=== PATIENT | female | born 1945 | race Caucasian/White ===

== ENCOUNTER 2018-03-12 12:28 | Inpatient (IN) | payer MEDICARE, MEDICAID ==
[2018-03-12 12:29] VITALS: BMI 29.0
[2018-03-12] MEDS ORDERED: Sodium Chloride 0.9% 500 ML IV ONE ×2 (12:59→16:39)
--- NOTE | 2018-03-12 13:20 | C.PDOC ---
History Of Present Illness 72 year old female presents to the emergency department with complaints of diffuse abdominal pain and rectal pain associated with watery diarrhea for one week. Patient states that today she noticed blood streaks in her diarrhea. Bianca ent reports a history of ulcerative colitis, and admits to nausea but denies vomiting, dysuria, hematuria and fever. Time Seen by Provider: 03/12/18 12:40 Chief Complaint (Nursing): GI Problem History Per: Patient History/Exam Limitations: no limitations Onset/Duration Of Symptoms: Other (one week) Current Symptoms Are (Timing): Still Present Location Of Pain/Discomfort: Diffuse Quality Of Discomfort: "Pain" Associated Symptoms: Nausea, Diarrhea. denies: Fever, Vomiting, Urinary Symptoms Past Medical History Reviewed: Historical Data, Nursing Documentation, Vital Signs Vital Signs: Last Vital Signs Temp 97.6 F 03/12/18 12:31 Pulse 105 H 03/12/18 12:31 Resp 19 03/12/18 12:31 BP 124/71 03/12/18 12:31 Pulse Ox 100 03/12/18 12:31 - Medical History PMH: Arthritis, Asthma, Diabetes Surgical History: No Surg Hx - [facility] SUTURE OF LIP LACERATION (06/18/13) TETANUS TOXOID ADMINIST (06/18/13) Family History: States: No Known Family Hx - Social History Hx Tobacco Use: No Hx Alcohol Use: No Hx Substance Use: No - Immunization History Hx Tetanus Toxoid Vaccination: No Hx Influenza Vaccination: No Hx Pneumococcal Vaccination: No Review Of Systems Except As Marked, All Systems Reviewed And Found Negative. Constitutional: Negative for: Fever, Chills Gastrointestinal: Positive for: Nausea, Abdominal Pain, Diarrhea. Negative for: Vomiting Genitourinary: Negative for: Dysuria, Hematuria Physical Exam - Physical Exam Appears: Non-toxic, In Acute Distress (mildly uncomfortable) Skin: Warm, Dry Head: Atraumatic, Normacephalic Eye(s): bilateral: Normal Inspection, PERRL, EOMI Oral Mucosa: Dry Neck: Normal, Supple Chest: Symmetrical Cardiovascular: Rhythm Regular, No Murmur, Other (tachycardic) Respiratory: Normal Breath Sounds, No Rales, No Rhonchi, No Wheezing Gastrointestinal/Abdominal: Soft, Tenderness (mild, diffuse tenderness), No G uarding, No Rebound Rectal: Other (? fistula at 9 o'clock position, some purulent discharge noticed from fistula. No bleeding or gross blood noticed.) Extremity: Normal ROM Neurological/Psych: Oriented x3, Normal Speech, Normal Cognition ED Course And Treatment - Laboratory Results Result Diagrams: 03/12/18 14:02 03/12/18 14:02 O2 Sat by Pulse Oximetry: 100 (RA) Pulse Ox Interpretation: Normal Progress Note: Plan: CMP. Lipase. Bloodwork. NaCl IV Fluids. Urinalysis Disposition - Disposition Condition: GOOD Forms: [facility] (Persian) - Scribe Statement The provider has reviewed the documentation as recorded by the Scribe (Maximiliano Pierre) Provider Attestation: All medical record entries made by the Scribe were at my direction and personally dictated by me. I have reviewed the chart and agree that the record accurately reflects my personal performance of the history, physical exam, medical decision making, and the department course for this patient. I have also personally directed, reviewed, and agree with the discharge instructions and disposition.
[2018-03-12 14:15] LABS: BASO % 0.2 % (0.0-2.0); EOS % 0.4 % (0.0-4.0); HEMOGLOBIN 11.4 g/dL (11.0-16.0); LYMPH # 1.1 K/uL (1.0-4.3); LYMPH % 15.7 % (20.0-40.0); MEAN CELL VOLUME 92.2 fL (81.0-99.0); MEAN CORPUSCULAR HEMOGLOBIN 30.7 pg (27.0-31.0); MEAN CORPUSCULAR HGB CONC 33.3 g/dL (33.0-37.0); MEAN PLATELET VOLUME 7.7 fL (7.2-11.7); MONO # 0.8 K/uL (0.0-0.8); MONO % 11.5 % (0.0-10.0); NEUT % 72.2 % (50.0-75.0); NRBC % 0.1 % (0.0-2.0); RBC 3.71 Mil/uL (3.80-5.20); RED CELL DISTRIBUTION WIDTH 13.8 % (11.5-14.5); WHITE BLOOD COUNT 6.9 K/uL (4.8-10.8)
[2018-03-12 14:23] LABS: ALB/GLOB RATIO 0.8 (1.0-2.1); ALBUMIN 2.8 g/dL (3.5-5.0); BLOOD UREA NITROGEN 13 mg/dL (7-17); CALCIUM 8.1 mg/dl (8.6-10.4); GFR NON-AFRICAN AMERICAN > 60; LIPASE 26 U/L (23-300)
[2018-03-12 14:33] LABS: ALT/SGPT 19 U/L (9-52); AST/SGOT 22 U/L (14-36)
[2018-03-12] MEDS ORDERED: Iohexol 240 (50 ml) PO STA (14:34)
[2018-03-12] MEDS ORDERED: Iohexol 240 (50 ml) ONE (14:42)
[2018-03-12 14:49] LABS: INR 1.4; PROTHROMBIN TIME 15.5 SECONDS (9.7-12.2)
[2018-03-12] MEDS ORDERED: MethylPREDNISolone 40 mg Vial IVP STA (16:28)
--- NOTE | 2018-03-12 16:28 | CT ---
Date of service: 03/12/2018 PROCEDURE: CT Abdomen and Pelvis without intravenous contrast HISTORY: abdominal and rectal pain, h/o UC COMPARISON: None. TECHNIQUE: Axial and reformatted coronal and sagittal CT images of the abdomen and pelvis were obtained without IV contrast administration. Oral contrast was given. Contrast dose: 0 IV contrast. Radiation dose: Total exam DLP = 357.15 mGy-cm. This CT exam was performed using one or more of the following dose reduction techniques: Automated exposure control, adjustment of the mA and/or kV according to patient size, and/or use of iterative reconstruction technique. FINDINGS: LOWER THORAX: Unremarkable. LIVER: The liver is mildly enlarged demonstrate diffuse moderate low attenuation suggestive of moderate fibrofatty infiltration. GALLBLADDER AND BILE DUCTS: Status post cholecystectomy. PANCREAS: Unremarkable. No gross lesion or ductal dilatation. SPLEEN: Unremarkable. ADRENALS: Unremarkable. No mass. KIDNEYS AND URETERS: There is 2 millimeter calcification noted in the midpole of the left kidney may represent vascular calcification. The possibility of obstructing calculus is less likely.. No hydronephrosis. No solid mass. VASCULATURE: Unremarkable. No aortic aneurysm. Scattered foci of aortic atherosclerotic calcification or mural plaque present. BOWEL: There is a diffuse large bowel wall thickening more prominent at the mid and distal transverse colon consistent with colitis. No evidence of high-grade small bowel obstruction. APPENDIX: No CT evidence of acute appendicitis. PERITONEUM: Unremarkable. No free fluid. No free air. LYMPH NODES: Mildly enlarged mesenteric lymph nodes noted in the mid and lower abdomen more on the right.. No evidence of significant retroperitoneal lymphadenopathy otherwise. BLADDER: Unremarkable. REPRODUCTIVE: The uterus and adnexa are not visualized. BONES: No acute fracture. OTHER FINDINGS: None. IMPRESSION: Diffuse large bowel wall thickening more prominent at the mid and distal transverse colon and hepatic flexure consistent with acute colitis. Mildly enlarged mesenteric lymph nodes. 2 millimeter calcification at the midpole of the left kidney likely vascular.
[2018-03-12] MEDS ORDERED: metroNIDAZOLE IV 500 mg/100 ml 500 MG/100 ML BAG IV STA (16:32)
[2018-03-12] MEDS ORDERED: MethylPREDNISolone 40 mg Vial ONE (16:43)
[2018-03-12] MEDS ORDERED: metroNIDAZOLE IV 500 mg/100 ml 500 MG/100 ML BAG ONE (16:44)
[2018-03-12] MEDS ORDERED: Dextrose 50% SYRINGE Inj (50 ml) IV PRN (18:45)
[2018-03-12] MEDS ORDERED: Glucagon Recombinant 1 mg Inj IM PRN (18:45)
[2018-03-12] MEDS: (Novolog) Insulin Aspart, Recombinant 100 u/ml 10 ml vial SC SCH (21:58)
[2018-03-12] MEDS: Hydrocortisone 2.5% Rectal Cream(30 gm) PR SCH (21:59)
[2018-03-12] MEDS ORDERED: metroNIDAZOLE IV 500 mg/100 ml 500 MG/100 ML BAG IVPB SCH (22:00)
[2018-03-12] MEDS ORDERED: (Novolin R) Insulin Human Regular 100 units/ml vial SC SCH (22:00)
[2018-03-12 22:37] LABS: SQUAMOUS EPITHIAL 17 /hpf (0-5); URINE BACTERIA FEW (<OCC); URINE BILIRUBIN NEGATIVE (NEGATIVE); URINE BLOOD 1+ (NEGATIVE); URINE CLARITY Hazy (Clear); URINE GLUCOSE (UA) NORMAL (Normal); URINE LEUKOCYTE ESTERASE 2+ Leu/uL (Negative); URINE PROTEIN 1+ mg/dL (NEGATIVE)
[2018-03-12 22:39] LABS: URINE COLOR YELLOW (YELLOW)
[2018-03-13] MEDS: metroNIDAZOLE IV 500 mg/100 ml 500 MG/100 ML BAG IVPB SCH ×3 (01:00→17:25)
[2018-03-13] MEDS: (Novolog) Insulin Aspart, Recombinant 100 u/ml 10 ml vial SC SCH ×4 (08:30→21:14)
[2018-03-13] MEDS ORDERED: Hydrocortisone 2.5% Rectal Cream(30 gm) PR SCH (10:00)
[2018-03-13] MEDS: Enoxaparin 40 mg Syringe SC SCH ×2 (10:11→10:22)
[2018-03-13] MEDS: Pantoprazole 20 mg EC Tab PO SCH (10:11)
[2018-03-13] MEDS: GlipiZIDE 10 mg SR Tab PO SCH (10:11)
[2018-03-13] MEDS: Hydrocortisone 2.5% Rectal Cream(30 gm) PR SCH ×2 (11:00→17:25)
--- NOTE | 2018-03-13 21:42 | HP ---
HISTORY OF PRESENT ILLNESS: The patient is a 72-year-old female who presents because of diffuse abdominal and rectal pain as well as watery diarrhea for the past one week. The patient has a history of ulcerative colitis. The patient denies any fever or chills, denies any nausea or vomiting. The patient is unaware of any prior cardiac history. SOCIAL HISTORY: Nonsmoker and nondrinker. According to her, she lives by herself with her dog and frequent visits from homemaker, but recently her son stays with her overnight. MEDICATIONS: Anusol cream twice a day, sulfasalazine 500 mg orally daily, Crestor 5 mg once a day, Flagyl 500 mg intravenously every 8 hours, folic acid 1 mg daily, Glucotrol XL 10 mg daily, Protonix 20 mg daily. REVIEW OF SYSTEMS: No fever or chills. No nausea or vomiting. No retrosternal chest pain. PHYSICAL EXAMINATION GENERAL: The patient is an elderly female who does not appear to be in acute distress. VITAL SIGNS: Blood pressure 115/54, heart rate 90, temperature 98.7, respirations 20. HEENT: Normocephalic. CHEST: Clear. HEART: S1 and S2 are regular. ABDOMEN: Soft. EXTREMITIES: No edema. LABORATORY DATA: Today's hemoglobin and hematocrit are 11.4 and 34.2, white count and platelet count are 6.9 and 294,000. SMA-7: Sodium 135, potassium 3.7, chloride 93, CO2 of 30, glucose 108, BUN 13, creatinine 0.5. INR is 1.4, PTT 34. Abdominal and pelvic CT scan: Diffuse large bowel wall thickening, more prominent at the mid and distal transverse colon and hepatic flexure consistent with acute colitis. Mildly enlarged mesenteric lymph nodes. ASSESSMENT: 1. Acute colitis, most likely exacerbation of ulcerative colitis. 2. Uncontrolled diabetes mellitus. 3. Slightly altered mental status with some paranoid ideations. PLAN: Continue current Anusol cream. Continue sulfasalazine 500 mg orally daily. Continue Crestor 5 mg once a day, IV Flagyl 500 mg intravenously every 8 hours, glipizide 10 mg daily, Protonix 20 mg orally daily. GI consult from requested and I would request endocrine consult from Dr. Sharp. In the meantime, I will obtain a basic 12-lead EKG. Heri Rutherford MD [facility] # [id number]
[2018-03-14] MEDS: metroNIDAZOLE IV 500 mg/100 ml 500 MG/100 ML BAG IVPB SCH ×3 (00:42→17:33)
[2018-03-14] MEDS ORDERED: Phytonadione 10 mg/ml Inj (Adult) SC STA (07:52)
[2018-03-14 07:53] LABS: EOS % 0.1 % (0.0-4.0); LYMPH # 2.1 K/uL (1.0-4.3); LYMPH % 22.3 % (20.0-40.0); MEAN CELL VOLUME 90.5 fL (81.0-99.0); MEAN CORPUSCULAR HEMOGLOBIN 31.4 pg (27.0-31.0); MEAN CORPUSCULAR HGB CONC 34.7 g/dL (33.0-37.0); MEAN PLATELET VOLUME 7.5 fL (7.2-11.7); MONO # 1.1 K/uL (0.0-0.8); MONO % 11.2 % (0.0-10.0); NEUT # 6.4 K/uL (1.8-7.0); NEUT % 66.4 % (50.0-75.0); NRBC % 0.1 % (0.0-2.0); RBC 3.51 Mil/uL (3.80-5.20); RED CELL DISTRIBUTION WIDTH 13.5 % (11.5-14.5); WHITE BLOOD COUNT 9.6 K/uL (4.8-10.8)
[2018-03-14] MEDS: (Novolog) Insulin Aspart, Recombinant 100 u/ml 10 ml vial SC SCH ×3 (08:21→17:34)
[2018-03-14 08:33] LABS: ALB/GLOB RATIO 0.7 (1.0-2.1); ALBUMIN 2.3 g/dL (3.5-5.0); ALT/SGPT 28 U/L (9-52); AST/SGOT 17 U/L (14-36); BLOOD UREA NITROGEN 6 mg/dL (7-17); CALCIUM 7.7 mg/dl (8.6-10.4); GFR NON-AFRICAN AMERICAN > 60
[2018-03-14] MEDS ORDERED: Potassium Chloride 20 mEq ER Tab PO STA (09:32)
[2018-03-14] MEDS: GlipiZIDE 10 mg SR Tab PO SCH (09:36)
[2018-03-14] MEDS: Pantoprazole 20 mg EC Tab PO SCH (09:36)
[2018-03-14] MEDS: Hydrocortisone 2.5% Rectal Cream(30 gm) PR SCH ×2 (09:36→17:40)
--- NOTE | 2018-03-14 10:10 | PN ---
DATE: 03/14/2018 LOCATION: 358, bed B. SUBJECTIVE: This is a 72-year-old female seen and examined in rounds with the staff today, as well as she was fully examined for GI consultation on 03/13/2018 as requested by the admitting MD with intermittent complaint of abdominal pain with reported rectal bleeding on and off. The entire chart is reviewed including but not limited to most recent lab and radiology study results, current and the previous medication list, current and the previous medical events, and the patient's blood glucose levels, latest, was 193. PHYSICAL EXAMINATION: GENERAL: This is a 72-year-old female, awake, alert, oriented. VITAL SIGNS: Temperature 99.4, pulse 80, respiratory rate 20 to 22, blood pressure 116/66. HEENT: Showed pale dry oral mucoid membrane. Nonicteric sclerae. LUNGS: Few scattered crepitation. Decreased air entry at bases. HEART: Positive S1 and S2. ABDOMEN: Soft with diffuse abdominal tenderness mainly in the right and left lower quadrant area. No mass or organomegaly. No rebound tenderness or guarding. NEUROLOGIC: No reported new neurological deficits, sensory or motor. EXTREMITIES: Without edema, clubbing or cyanosis. IMPRESSION: 1. Abnormal CAT scan of the abdomen and pelvis, indicative of acute colitis. 2. To rule out occult gastrointestinal malignancy. 3. To rule out re-exacerbation of peptic ulcer disease. 4. Known history of poorly controlled diabetes mellitus, osteoarthritis and bronchial asthma. SUGGESTIONS: 1. Agree with your plan. 2. Correct any underlying electrolyte imbalance. 3. Due to the patient's increased PT, vitamin K to be ordered. 4. Continue current management and the patient needs to be scheduled for colonoscopy after adequate preparation. 5. Further recommendation to follow and the possibility of ischemic colitis ____ as per Dr. Lepe. Ilan Lepe MD
--- NOTE | 2018-03-14 20:37 | CP.PCM.CON ---
Past Patient History - Past Medical History & Family History Past Medical History?: Yes - Past Social History Smoking Status: Never Smoked - PULMONARY Hx Asthma: Yes - ENDOCRINE/METABOLIC Hx Diabetes Mellitus Type 2: Yes - MUSCULOSKELETAL/RHEUMATOLOGICAL Hx Arthritis: Yes - GASTROINTESTINAL Hx Colitis: Yes - PSYCHIATRIC Hx Substance Use: No - SURGICAL HISTORY Hx Surgeries: Yes Hx Hysterectomy: Yes Hx Orthopedic Surgery: Yes (BILATERAL KNEE REPLACEMENT) - ANESTHESIA Hx Anesthesia: Yes Hx Anesthesia Reactions: No Meds Allergies/Adverse Reactions: Allergies Allergy/AdvReac Type Severity Reaction Status Date / Time iodine Allergy Verified 03/12/18 14:37 - Medications Medications: Current Medications Bisacodyl (Dulcolax) 10 mg PO ONCE ONE Stop: 03/15/18 17:01 Dextrose (Dextrose 50% Inj) 0 ml IV STAT PRN; Protocol PRN Reason: Hypoglycemia Protocol Dextrose (Glutose 15) 0 gm PO ONCE PRN; Protocol PRN Reason: Hypoglycemia Protocol Folic Acid (Folic Acid) 1 mg PO DAILY [facility] Last Admin: 03/14/18 09:36 Dose: 1 mg Glipizide (Glucotrol Xl) 10 mg PO DAILY [facility] Last Admin: 03/14/18 09:36 Dose: 10 mg Glucagon (Glucagen Diagnostic Kit) 0 mg IM STAT PRN; Protocol PRN Reason: Hypoglycemia Protocol Hydrocortisone (Anusol-Hc) 1 gm W[place] BID [facility] Last Admin: 03/14/18 17:40 Dose: 1 applic Dextrose (Dextrose 5% In Water 1000 Ml) 1,000 mls @ 0 mls/hr IV .Q0M PRN; Protocol PRN Reason: Hypoglycemia Protocol Metronidazole (Flagyl) 500 mg in 100 mls @ 100 mls/hr IVPB Q8H RABIA; Protocol Last Admin: 03/14/18 17:33 Dose: 100 mls/hr Insulin Aspart (Novolog) 0 unit SC ACHS RABIA; Protocol Last Admin: 03/14/18 17:34 Dose: Not Given Metoclopramide HCl (Reglan) 5 mg IVP Q6H [facility] Morphine Sulfate (Morphine) 1 mg IVP Q4 PRN PRN Reason: Pain, severe (8-10) Last Admin: 03/14/18 19:14 Dose: 1 mg Pantoprazole Sodium (Protonix Ec Tab) 20 mg PO DAILY [facility] Last Admin: 03/14/18 09:36 Dose: 20 mg Polyethylene Glycol/Electrolytes (Golytely) 4,000 ml PO ONCE ONE Stop: 03/15/18 10:01 Potassium Chloride (K-Dur 20 Meq Er Tab) 20 meq PO DAILY RABIA Stop: 03/18/18 10:01 Rosuvastatin Calcium (Crestor) 5 mg PO HS RABIA Last Admin: 03/13/18 21:15 Dose: 5 mg Sulfasalazine (Azulfidine) 500 mg PO DAILY RABIA; Protocol Last Admin: 03/14/18 09:36 Dose: 500 mg Results - Vital Signs Recent Vital Signs: Last Vital Signs Temp 97.7 F 03/14/18 15:15 Pulse 91 H 03/14/18 15:15 Resp 20 03/14/18 15:15 BP 130/78 03/14/18 15:15 Pulse Ox 100 03/14/18 15:15 - Labs Result Diagrams: 03/14/18 07:29 03/14/18 07:29 Labs: Laboratory Results - last 24 hr 03/13/18 03/14/18 03/14/18 21:01 07:29 07:29 WBC 9.6 RBC 3.51 L Hgb 11.0 Hct 31.8 L MCV 90.5 MCH 31.4 H MCHC 34.7 RDW 13.5 Plt Count 381 MPV 7.5 Neut % (Auto) 66.4 Lymph % (Auto) 22.3 Crisp % (Auto) 11.2 H Eos % (Auto) 0.1 Baso % (Auto) 0.0 Neut # (Auto) 6.4 Lymph # (Auto) 2.1 Crisp # (Auto) 1.1 H Eos # (Auto) 0.0 Baso # (Auto) 0.0 Sodium 138 Potassium 2.8 L Chloride 100 Carbon Dioxide 29 Anion Gap 11 BUN 6 L Creatinine 0.5 L Est GFR ( Amer) > 60 Est GFR (Non-Af Amer) > 60 POC Glucose (mg/dL) 193 H Random Glucose 59 L Calcium 7.7 L Total Bilirubin 0.5 AST 17 ALT 28 Alkaline Phosphatase 90 Total Protein 5.6 L Albumin 2.3 L Globulin 3.3 Albumin/Globulin Ratio 0.7 L 03/14/18 03/14/18 03/14/18 07:55 08:25 11:28 WBC RBC Hgb Hct MCV MCH MCHC RDW Plt Count MPV Neut % (Auto) Lymph % (Auto) Crisp % (Auto) Eos % (Auto) Baso % (Auto) Neut # (Auto) Lymph # (Auto) Crisp # (Auto) Eos # (Auto) Baso # (Auto) Sodium Potassium Chloride Carbon Dioxide Anion Gap BUN Creatinine Est GFR ( Amer) Est GFR (Non-Af Amer) POC Glucose (mg/dL) 68 75 207 H Random Glucose Calcium Total Bilirubin AST ALT Alkaline Phosphatase Total Protein Albumin Globulin Albumin/Globulin Ratio 03/14/18 16:28 WBC RBC Hgb Hct MCV MCH MCHC RDW Plt Count MPV Neut % (Auto) Lymph % (Auto) Crisp % (Auto) Eos % (Auto) Baso % (Auto) Neut # (Auto) Lymph # (Auto) Crisp # (Auto) Eos # (Auto) Baso # (Auto) Sodium Potassium Chloride Carbon Dioxide Anion Gap BUN Creatinine Est GFR ( Amer) Est GFR (Non-Af Amer) POC Glucose (mg/dL) 89 Random Glucose Calcium Total Bilirubin AST ALT Alkaline Phosphatase Total Protein Albumin Globulin Albumin/Globulin Ratio Assessment & Plan (1) Hypoglycemia associated with diabetes Status: Acute (2) Uncontrolled diabetes mellitus Assessment and Plan: Endocrine consult reason for consult: uncontrolled diabetes Source: patient and chart review & son Parag by bed side Cristel Cox is 72 y/o admitted for abdomina pain forund with colitis on antibiotics & rectal steroids as per pt. has DM 2006 (-) neuropathy , (-) retinopathy , (-) nephropathy (- ) CAD (-) PVD outpatient diabetes management regimen : glipizide 10 mg po bid inpatient diabetes management regimen: glipizide xl 10 mg po qd & novolog medium dose coverage blood glucose log :68-200 , on admission 300 with poor intake NO hypoglycemia Allergy NKDA Past medical history:HTN , hyperlipidemia , asthma Past surgical history: cholecystectomy, colon surgery x 2 ,bilateral knee rep lacement Psychiatry history: denies Social history: denies smoking , ETOH use , illicit drug use Family history: son with diabetes ROS: Constitutional: denies fever, tiredness/weakness. HEENT: denies earache, change in voice .Respiratory: denies cough, sob . CVS :no chest pain, no pa lpitations . Abdomen: (+) abdominal pain, no nausea /vomiting, no change bowel movement. 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 Extremities: no edema, no tremors. Skin: no itching, no rash Physical exam Well-developed AAO x3 , ,NAD , frail VSS HEENT: norm cephalic, atraumatic, no lid lag , no exophthalmos NECK: supple, no palpable lymphadenopathy THYROID: no palpable thyromegaly, not tender CHEST: fair air entry, bilateral, CVS: S1,S2 ABDOMEN: bowel sound present, (+) tendereness , obese, no wide purple striae , no bruises EXTREMITIES: no edema, clubbing or cyanosis, no palpable hand tremors Skin: acanthosis nigricans -lab: noted Assessment: hypoglycemia uncontrolled DM colitits plan : stop glipizide stop Novolog start Novoloin R low dose coverage tid & hs start lantus 7 units sq @ 9pm daily obtain a1c & TSH Thank you for allowing me to participate in the care of the patient, we will follow with you. Ronit Tanner # [phone] office Fridays & Saturdays address: [address] [place] [address] ,phone # [phone] ,FAX [phone] Status: Acute (3) Colitis Status: Acute
--- NOTE | 2018-03-14 21:48 | PN ---
DATE: 03/14/2018 SUBJECTIVE: The patient is confused at times. She is still experiencing diarrhea. No vomiting. PHYSICAL EXAMINATION: VITAL SIGNS: Blood pressure 130/78, heart rate 91, temperature 97.7, respirations 20. HEENT: Normocephalic. CHEST: Clear. HEART: S1, S2 regular. EXTREMITIES: No edema. LABORATORY DATA: Today's SMA-7: Sodium 138, potassium 2.8, chloride 100, CO2 29, glucose 59, BUN 6, creatinine 0.5. Today's hemoglobin and hematocrit are 11 and 31.8, white count and platelet count are within normal limits. ASSESSMENT: 1. Ulcerative colitis with acute exacerbation. 2. Rule out occult gastrointestinal malignancy. 3. Rule out exacerbation of peptic ulcer disease. 4. Uncontrolled diabetes mellitus. PLAN: Continue sulfasalazine 500 mg orally daily, Crestor 5 mg once a day, discontinue Dulcolax, continue IV Flagyl 500 mg every 8 hours, glipizide-XL 10 mg daily, K-Dur 20 mEq p.o. daily, and the patient did receive 40 mEq of oral K-Dur today, besides 40 mEq of intravenous potassium chloride. I will follow BMP in a.m. and the patient is scheduled for colonoscopy next week. Heri Rutherford MD
[2018-03-14] MEDS: (Lantus) Insulin Glargine, Recombinant SC SCH (22:14)
[2018-03-14] MEDS: (Novolin R) Insulin Human Regular 100 units/ml vial SC SCH (22:15)
--- NOTE | 2018-03-15 00:27 | CON ---
DATE: 03/13/[address] Lepe to Dr. Figueroa Richardson. I was called for a GI consultation by the admitting medical team. The patient is seen and fully examined on 03/13/2018 as requested by the admitting medical staff. The entire chart is reviewed, including, but not limited to most recent lab and radiology study results, current and the previous medication list, current and the previous medical events, allergy to medication list as well as all the available current and the previous medical records. Case discussed with the staff at length on 03/13/2018 after my GI consultation. HISTORY OF PRESENT ILLNESS: This is a 72-year-old female who was admitted to the hospital through the emergency room due to diffuse abdominal pain, recurrent episodes of rectal pain with watery diarrhea associated with intermittent period of rectal bleeding. Keeping in mind that the patient has a history of ulcerative colitis and her last colonoscopy, apparently with performances, several years ago according to her statement. No reported hematemesis, chest pain, or palpitation. No persistent nausea and dyspepsia prior to her admission. PAST MEDICAL HISTORY: Including mainly, but not limited to: 1. Diabetes mellitus. 2. Inflammatory bowel disease. 3. Bronchial asthma. 4. Osteoarthritis. FAMILY HISTORY: Unknown. SOCIAL HISTORY: No recent history of cigarette smoking or alcohol intake. CURRENT MEDICATIONS: Post admission medication lists were reviewed. ALLERGIES TO MEDICATIONS: UNCLEAR. LABORATORY DATA: Initial blood workup showed normal CBC with increased blood glucose level to 108 with creatinine of 0.5 with subsequent improvement of her blood glucose level since admission. PHYSICAL EXAMINATION: GENERAL: A 72-year-old female complaining of crampy abdominal pain as well as intermittent period of rectal bleeding. Appears to be awake, alert. VITAL SIGNS: Afebrile with pulse of 98, respiratory rate 20-22, blood pressure 120/74. HEENT: Showed dry oral mucous membrane. Nonicteric sclerae. LUNGS: Few scattered crepitation. Decreased air entry at bases. HEART: Positive S1 and S2. ABDOMEN: Soft. Bowel sounds are present with generalized tenderness. No mass or organomegaly. No rebound tenderness or guarding. RECTAL: Positive for trace of fresh blood. EXTREMITIES: Without significant clubbing, cyanosis, or edema. NEUROLOGIC: No reported new neurological deficits, sensory or motor. IMPRESSION: 1. Re-exacerbation of ulcerative colitis. 2. Rectal bleeding secondary to above, to rule out occult lower gastrointestinal malignancy. 3. Peptic ulcer disease, to rule out gastric versus duodenal ulcer. 4. Past medical history of poorly controlled diabetes mellitus, bronchial asthma, and osteoarthritis. SUGGESTIONS: 1. Agree with your plan. 2. Cancer markers including CEA. 3. Sedimentation rate. 4. Solu-Cortef IV. Proton pump inhibitors IV. 5. Sectional abdominal and pelvic CAT scan. 6. Endoscopic evaluation of the GI tract when the patient is more stable clinically. Further recommendations to follow. Ilan Lepe MD
[2018-03-15] MEDS: metroNIDAZOLE IV 500 mg/100 ml 500 MG/100 ML BAG IVPB SCH ×3 (01:07→17:50)
[2018-03-15 08:02] LABS: BLOOD UREA NITROGEN < 2 mg/dL (7-17); CALCIUM 7.6 mg/dl (8.6-10.4); GFR NON-AFRICAN AMERICAN > 60
[2018-03-15] MEDS: (Novolin R) Insulin Human Regular 100 units/ml vial SC SCH ×4 (08:06→21:57)
[2018-03-15] MEDS: Pantoprazole 20 mg EC Tab PO SCH (09:38)
[2018-03-15] MEDS: Hydrocortisone 2.5% Rectal Cream(30 gm) PR SCH ×2 (09:38→17:49)
[2018-03-15] MEDS: Potassium Chloride 20 mEq ER Tab PO SCH (09:39)
[2018-03-15] MEDS ORDERED: Peg-Electrolyte Oral Soln 4L (Golytely) PO ONE (10:00)
--- NOTE | 2018-03-15 11:19 | PN ---
DATE: 03/15/2018 LOCATION: 358, Bed B. SUBJECTIVE: This 72-year-old female seen and examined early in rounds today with reported periods of mild hypoglycemia by last night, appeared to be awake, alert and oriented this morning with reported trace of rectal bleeding on and off and recent change of bowel movement habit. Denied any actual chest pain, palpitation, significant shortness of breath, chills or fever. Today's lab results showed hemoglobin of 83. PHYSICAL EXAMINATION: GENERAL: A 72-year-old female. VITAL SIGNS: Temperature of 99.5, pulse of 86, respiratory 20-22, blood pressure of 124/64. HEENT: Showed pale dry oral mucous membrane. Nonicteric sclerae. LUNGS: Few scattered crepitation. Decreased air entry at bases. HEART: Positive S1 and S2. ABDOMEN: Soft with mild generalized tenderness. No mass or organomegaly. No rebound tenderness or guarding. EXTREMITIES: Without significant clubbing, cyanosis or edema. NEUROLOGIC: No reported new neurological deficits, sensory or motor. IMPRESSION: 1. Abnormal CAT scan of the abdomen and pelvis. 2. Gastrointestinal blood loss, to rule out possible occult gastrointestinal malignancy. 3. Acute colitis. 4. Re-exacerbation of peptic ulcer disease. 5. Known history of osteoarthritis, bronchial asthma, poorly controlled diabetes mellitus. SUGGESTIONS: 1. Continue current management. 2. The patient for colonoscopy at a.m. 3. Serum lipase, amylase level. 4. Further recommendation to follow post colonoscopy. Ilan Lepe MD
--- NOTE | 2018-03-15 14:25 | PN ---
DATE: 03/15/2018 SUBJECTIVE: The patient is still experiencing diarrhea; however, she is getting GoLYTELY as per the patient for colonoscopy. She denies any chest pain, abdominal pain, nausea, or vomiting. PHYSICAL EXAMINATION: VITAL SIGNS: Blood pressure 117/67, heart rate 88, temperature 98.6, and respirations 20. HEENT: Normocephalic. CHEST: Clear. HEART: S1 and S2 regular. EXTREMITIES: No edema. LABORATORY DATA: SMA-7: Sodium 135, potassium 3.6, chloride 101, CO2 of 27, glucose 121, BUN less than 2, and creatinine 0.5. Hemoglobin A1c is 11.3. ASSESSMENT: 1. Ulcerative colitis with acute exacerbation. 2. Rule out underlying gastrointestinal malignancy. 3. Uncontrolled diabetes mellitus. 4. Improved hypokalemia. 5. . PLAN: Continue sulfasalazine 500 mg orally daily, Crestor 500 mg once a day, Flagyl 500 mg intravenously every 8 hours, folic acid 1 mg daily, K-Dur 20 mEq orally daily, Protonix 20 mg once a day, and Reglan 5 mg intravenously every 6 hours. The patient will undergo colonoscopy tomorrow. Heri Rutherford MD
[2018-03-15] MEDS ORDERED: Bisacodyl 5mg EC Tab PO ONE (17:00)
[2018-03-15] MEDS: (Lantus) Insulin Glargine, Recombinant SC SCH (21:57)
[2018-03-16] MEDS: metroNIDAZOLE IV 500 mg/100 ml 500 MG/100 ML BAG IVPB SCH ×3 (00:31→17:46)
[2018-03-16] MEDS: (Novolin R) Insulin Human Regular 100 units/ml vial SC SCH ×4 (08:18→21:14)
[2018-03-16 08:35] LABS: BLOOD UREA NITROGEN 2 mg/dL (7-17); CALCIUM 7.6 mg/dl (8.6-10.4); GFR NON-AFRICAN AMERICAN > 60
[2018-03-16] MEDS: Pantoprazole 20 mg EC Tab PO SCH ×2 (09:34→13:53)
[2018-03-16] MEDS: Potassium Chloride 20 mEq ER Tab PO SCH ×2 (09:34→13:53)
[2018-03-16] MEDS: Hydrocortisone 2.5% Rectal Cream(30 gm) PR SCH ×2 (10:02→17:44)
[2018-03-16] MEDS ORDERED: Propofol 10 mg/ml Inj (20 ML) ONE (11:57)
[2018-03-16] MEDS ORDERED: Lidocaine Hydrochloride 5 ML INJ ONE (11:57)
[2018-03-16 14:20] VITALS: RESP 20
[2018-03-16 18:04] LABS: INR 1.7; PROTHROMBIN TIME 19.1 SECONDS (9.7-12.2)
--- NOTE | 2018-03-16 19:44 | CARD ---
APPROVED REPORT Date of service: 03/13/2018 EKG Measurement Heart [id number] <Conclusion> Normal sinus rhythm Normal ECG
[2018-03-16] MEDS: (Lantus) Insulin Glargine, Recombinant SC SCH (21:21)
--- NOTE | 2018-03-16 21:51 | CP.PCM.PN ---
Subjective - Date & Time of Evaluation Date of Evaluation: 03/16/18 Time of Evaluation: 08:45 - Subjective Subjective: hypoglycemia Objective - Vital Signs/Intake and Output Vital Signs (last 24 hours): Temp Pulse Resp BP Pulse Ox 98.2 F 87 20 131/67 99 03/16/18 16:00 03/16/18 16:00 03/16/18 16:00 03/16/18 16:00 03/16/18 16:00 Intake and Output: 03/16/18 03/17/18 18:59 06:59 Intake Total 490 Balance 490 - Medications Medications: Current Medications Dextrose (Dextrose 50% Inj) 0 ml IV STAT PRN; Protocol PRN Reason: Hypoglycemia Protocol Dextrose (Glutose 15) 0 gm PO ONCE PRN; Protocol PRN Reason: Hypoglycemia Protocol Folic Acid (Folic Acid) 1 mg PO DAILY [facility] Last Admin: 03/16/18 13:53 Dose: 1 mg Glucagon (Glucagen Diagnostic Kit) 0 mg IM STAT PRN; Protocol PRN Reason: Hypoglycemia Protocol Hydrocortisone (Anusol-Hc) 1 gm [place] BID [facility] Last Admin: 03/16/18 17:44 Dose: 1 applic Metronidazole (Flagyl) 500 mg in 100 mls @ 100 mls/hr IVPB Q8H [facility]; Protocol Last Admin: 03/16/18 17:46 Dose: 100 mls/hr Insulin Glargine (Lantus) 7 unit SC [facility] Last Admin: 03/16/18 21:21 Dose: 7 units Insulin Human Regular (Novolin R) 0 unit SC [facility]; Protocol Last Admin: 03/16/18 21:14 Dose: Not Given Metoclopramide HCl (Reglan) 5 mg IVP Q6H [facility] Last Admin: 03/16/18 17:46 Dose: 5 mg Morphine Sulfate (Morphine) 1 mg IVP Q4 PRN PRN Reason: Pain, severe (8-10) Last Admin: 03/16/18 20:03 Dose: 1 mg Pantoprazole Sodium (Protonix Ec Tab) 20 mg PO DAILY [facility] Last Admin: 03/16/18 13:53 Dose: 20 mg Potassium Chloride (K-Dur 20 Meq Er Tab) 20 meq PO DAILY [facility] Stop: 03/18/18 10:01 Last Admin: 03/16/18 13:53 Dose: 20 meq Rosuvastatin Calcium (Crestor) 5 mg PO [facility] Last Admin: 03/16/18 21:22 Dose: 5 mg Sulfasalazine (Azulfidine) 500 mg PO DAILY [facility]; Protocol Last Admin: 03/16/18 14:37 Dose: 500 mg - Labs Labs: 03/14/18 07:29 03/16/18 08:16 PT 19.1 SECONDS (9.7-12.2) H 03/16/18 17:44 INR 1.7 03/16/18 17:44 APTT 25 SECONDS (21-34) 03/16/18 17:44 Assessment and Plan (1) Hypoglycemia associated with diabetes Assessment & Plan: Endocrine consult f/u reason for consult: uncontrolled diabetes Source: patient and chart review & son Parag by bed side Cristel Cox is 72 y/o admitted for abdomina pain forund with colitis on antibiotics & rectal steroids as per pt. has DM 2005 (-) neuropathy , (-) retinopathy , (-) nephropathy (- ) CAD (-) PVD outpatient diabetes management regimen : glipizide 10 mg po bid inpatient diabetes management regimen: glipizide xl 10 mg po qd & novolog medium dose coverage blood glucose log :190 with poor intake NO hypoglycemia Allergy NKDA Past medical history:HTN , hyperlipidemia , asthma Past surgical history: cholecystectomy, colon surgery x 2 ,bilateral knee replacement Psychiatry history: denies Social history: denies smoking , ETOH use , illicit drug use Family history: son with diabetes ROS: Constitutional: denies fever, tiredness/weakness. HEENT: denies earache, change in voice .Respiratory: denies cough, sob . CVS :no chest pain, no palpitations . Abdomen: (+) abdominal pain, no nausea /vomiting, no change bowel movement. [employer] : denies light-headedness, dizziness. Extremities: no edema, no tremors. Skin: no itching, no rash Physical exam Well-developed AAO x3 , ,NAD , frail VSS HEENT: norm cephalic, atraumatic, no lid lag , no exophthalmos NECK: supple, no palpable lymphadenopathy THYROID: no palpable thyromegaly, not tender CHEST: fair air entry, bilateral, CVS: S1,S2 ABDOMEN: bowel sound present, (+) tendereness , obese, no wide purple striae , no bruises EXTREMITIES: no edema, clubbing or cyanosis, no palpable hand tremors Skin: acanthosis nigricans -lab: a1c 11.3 , TSH 2.02 Assessment: hypoglycemia , resolved uncontrolled DM colitits plan : continue Novoloin R low dose coverage tid & hs continue lantus 7 units sq @ 9pm daily we will follow with you. Ronit Tanner # [phone] office Fridays & Saturdays address: [address] [place] [address] ,phone # [phone] ,FAX [phone] Status: Acute (2) Uncontrolled diabetes mellitus Status: Acute (3) Colitis Status: Acute
[2018-03-17] MEDS: metroNIDAZOLE IV 500 mg/100 ml 500 MG/100 ML BAG IVPB SCH ×3 (01:03→17:50)
--- NOTE | 2018-03-17 02:10 | CP.PCM.PN ---
Subjective - Date & Time of Evaluation Date of Evaluation: 03/16/18 - Subjective Subjective: dictated Objective - Vital Signs/Intake and Output Vital Signs (last 24 hours): Temp Pulse Resp BP Pulse Ox 98.8 F 86 20 108/55 L 98 03/17/18 00:00 03/17/18 00:00 03/17/18 00:00 03/17/18 00:00 03/17/18 00:00 Intake and Output: 03/16/18 03/17/18 18:59 06:59 Intake Total 490 450 Balance 490 450 - Medications Medications: Current Medications Dextrose (Dextrose 50% Inj) 0 ml IV STAT PRN; Protocol PRN Reason: Hypoglycemia Protocol Dextrose (Glutose 15) 0 gm PO ONCE PRN; Protocol PRN Reason: Hypoglycemia Protocol Folic Acid (Folic Acid) 1 mg PO DAILY [facility] Last Admin: 03/16/18 13:53 Dose: 1 mg Glucagon (Glucagen Diagnostic Kit) 0 mg IM STAT PRN; Protocol PRN Reason: Hypoglycemia Protocol Hydrocortisone (Anusol-Hc) 1 gm [place] BID [facility] Last Admin: 03/16/18 17:44 Dose: 1 applic Metronidazole (Flagyl) 500 mg in 100 mls @ 100 mls/hr IVPB Q8H [facility]; Protocol Last Admin: 03/17/18 01:03 Dose: 100 mls/hr Insulin Glargine (Lantus) 7 unit SC [facility] Last Admin: 03/16/18 21:21 Dose: 7 units Insulin Human Regular (Novolin R) 0 unit SC [facility]; Protocol Last Admin: 03/16/18 21:14 Dose: Not Given Metoclopramide HCl (Reglan) 5 mg IVP Q6H [facility] Last Admin: 03/17/18 00:47 Dose: Not Given Morphine Sulfate (Morphine) 1 mg IVP Q4 PRN PRN Reason: Pain, severe (8-10) Last Admin: 03/16/18 20:03 Dose: 1 mg Pantoprazole Sodium (Protonix Ec Tab) 20 mg PO DAILY [facility] Last Admin: 03/16/18 13:53 Dose: 20 mg Potassium Chloride (K-Dur 20 Meq Er Tab) 20 meq PO DAILY [facility] Stop: 03/18/18 10:01 Last Admin: 03/16/18 13:53 Dose: 20 meq Rosuvastatin Calcium (Crestor) 5 mg PO [facility] Last Admin: 03/16/18 21:22 Dose: 5 mg Sulfasalazine (Azulfidine) 500 mg PO DAILY [facility]; Protocol Last Admin: 03/16/18 14:37 Dose: 500 mg - Labs Labs: 03/14/18 07:29 03/16/18 08:16 PT 19.1 SECONDS (9.7-12.2) H 03/16/18 17:44 INR 1.7 03/16/18 17:44 APTT 25 SECONDS (21-34) 03/16/18 17:44
[2018-03-17 06:48] LABS: BASO % 0.5 % (0.0-2.0); EOS % 0.3 % (0.0-4.0); HEMOGLOBIN 10.7 g/dL (11.0-16.0); LYMPH # 1.4 K/uL (1.0-4.3); LYMPH % 28.5 % (20.0-40.0); MEAN CELL VOLUME 90.9 fL (81.0-99.0); MEAN CORPUSCULAR HEMOGLOBIN 29.9 pg (27.0-31.0); MEAN CORPUSCULAR HGB CONC 32.9 g/dL (33.0-37.0); MEAN PLATELET VOLUME 7.1 fL (7.2-11.7); MONO # 0.7 K/uL (0.0-0.8); MONO % 13.7 % (0.0-10.0); NEUT # 2.7 K/uL (1.8-7.0); NRBC % 0.2 % (0.0-2.0); RBC 3.57 Mil/uL (3.80-5.20); RED CELL DISTRIBUTION WIDTH 13.8 % (11.5-14.5); WHITE BLOOD COUNT 4.8 K/uL (4.8-10.8)
--- NOTE | 2018-03-17 06:56 | PN ---
DATE: 03/17/2018 SUBJECTIVE: The patient, Cristel Edward, has still some abdominal discomfort and she has right hip pain. Her sugar went down to 62. The patient is status post colonoscopy which showed colitis. Biopsy is pending. She is afebrile. No chest pain. No nausea or vomiting. The patient is currently on sulfasalazine and Flagyl. Her potassium was supplemented. PHYSICAL EXAMINATION: VITAL SIGNS: Blood pressure is 130/77, pulse 92, respiratory rate 20, and temperature 98.7. LUNGS: Clear. No rales. No rhonchi. CARDIOVASCULAR SYSTEM: S1 and S2. Regular. EXTREMITIES: Right hip normal range of movements. CENTRAL NERVOUS SYSTEM: Awake, alert, and oriented x3. ASSESSMENT AND PLAN: 1. Hypoglycemia. We will monitor the patient more carefully and scale down her coverage. 2. Colitis. Biopsy pending. The patient is a known case of ulcerative colitis with excessive lesions in the recent past. 3. Hypertension. 4. Rheumatoid arthritis. PLAN: Pain medication on a p.r.n. basis., diet, and GI followup. Monitor the patient. Figueroa Richardson MD
[2018-03-17 07:17] LABS: CALCIUM 7.4 mg/dl (8.6-10.4); GFR NON-AFRICAN AMERICAN > 60
[2018-03-17 07:38] LABS: BLOOD UREA NITROGEN < 2 mg/dL (7-17)
[2018-03-17] MEDS: (Novolin R) Insulin Human Regular 100 units/ml vial SC SCH ×4 (08:25→21:28)
[2018-03-17] MEDS: Pantoprazole 20 mg EC Tab PO SCH (09:47)
[2018-03-17] MEDS: Potassium Chloride 20 mEq ER Tab PO SCH (09:47)
[2018-03-17] MEDS: Hydrocortisone 2.5% Rectal Cream(30 gm) PR SCH ×2 (11:00→17:49)
[2018-03-17] MEDS: MethylPREDNISolone 40 mg Vial IVP SCH ×2 (12:00→21:28)
[2018-03-17] MEDS: (Lantus) Insulin Glargine, Recombinant SC SCH (21:29)
--- NOTE | 2018-03-17 21:57 | CP.PCM.PN ---
Subjective - Subjective Subjective: dictated Objective - Vital Signs/Intake and Output Vital Signs (last 24 hours): Temp Pulse Resp BP Pulse Ox 97.9 F 81 20 110/57 L 100 03/17/18 16:33 03/17/18 16:33 03/17/18 16:33 03/17/18 16:33 03/17/18 16:33 Intake and Output: 03/17/18 03/18/18 18:59 06:59 Intake Total 1100 Balance 1100 - Medications Medications: Current Medications Dextrose (Dextrose 50% Inj) 0 ml IV STAT PRN; Protocol PRN Reason: Hypoglycemia Protocol Dextrose (Glutose 15) 0 gm PO ONCE PRN; Protocol PRN Reason: Hypoglycemia Protocol Folic Acid (Folic Acid) 1 mg PO DAILY [facility] Last Admin: 03/17/18 09:47 Dose: 1 mg Glucagon (Glucagen Diagnostic Kit) 0 mg IM STAT PRN; Protocol PRN Reason: Hypoglycemia Protocol Hydrocortisone (Anusol-Hc) 1 gm [place] BID [facility] Last Admin: 03/17/18 17:49 Dose: 1 applic Metronidazole (Flagyl) 500 mg in 100 mls @ 100 mls/hr IVPB Q8H [facility]; Protocol Last Admin: 03/17/18 17:50 Dose: 100 mls/hr Insulin Glargine (Lantus) 7 unit SC HS [facility] Last Admin: 03/17/18 21:29 Dose: 7 units Insulin Human Regular (Novolin R) 0 unit SC [facility]; Protocol Last Admin: 03/17/18 21:28 Dose: Not Given Methylprednisolone (Solu-Medrol) 30 mg IVP Q12 [facility] Stop: 03/19/18 22:01 Last Admin: 03/17/18 21:28 Dose: 30 mg Metoclopramide HCl (Reglan) 5 mg IVP Q6H [facility] Last Admin: 03/17/18 18:02 Dose: 5 mg Morphine Sulfate (Morphine) 1 mg IVP Q4 PRN PRN Reason: Pain, severe (8-10) Last Admin: 03/17/18 18:15 Dose: 1 mg Pantoprazole Sodium (Protonix Ec Tab) 20 mg PO DAILY [facility] Last Admin: 03/17/18 09:47 Dose: 20 mg Potassium Chloride (K-Dur 20 Meq Er Tab) 20 meq PO DAILY [facility] Stop: 03/18/18 10:01 Last Admin: 03/17/18 09:47 Dose: 20 meq Rosuvastatin Calcium (Crestor) 5 mg PO HS [facility] Last Admin: 03/17/18 21:31 Dose: 5 mg Sulfasalazine (Azulfidine) 500 mg PO DAILY [facility]; Protocol Last Admin: 03/17/18 09:47 Dose: 500 mg - Labs Labs: 03/17/18 06:31 03/17/18 06:31 PT 19.1 SECONDS (9.7-12.2) H 03/16/18 17:44 INR 1.7 03/16/18 17:44 APTT 25 SECONDS (21-34) 03/16/18 17:44
--- NOTE | 2018-03-17 22:26 | CP.PCM.PN ---
Subjective - Date & Time of Evaluation Date of Evaluation: 03/17/18 Time of Evaluation: 10:00 - Subjective Subjective: hypoglycemia , uncontrolled dm Objective - Vital Signs/Intake and Output Vital Signs (last 24 hours): Temp Pulse Resp BP Pulse Ox 97.9 F 81 20 110/57 L 100 03/17/18 16:33 03/17/18 16:33 03/17/18 16:33 03/17/18 16:33 03/17/18 16:33 Intake and Output: 03/17/18 03/18/18 18:59 06:59 Intake Total 1100 Balance 1100 - Medications Medications: Current Medications Dextrose (Dextrose 50% Inj) 0 ml IV STAT PRN; Protocol PRN Reason: Hypoglycemia Protocol Dextrose (Glutose 15) 0 gm PO ONCE PRN; Protocol PRN Reason: Hypoglycemia Protocol Folic Acid (Folic Acid) 1 mg PO DAILY [facility] Last Admin: 03/17/18 09:47 Dose: 1 mg Glucagon (Glucagen Diagnostic Kit) 0 mg IM STAT PRN; Protocol PRN Reason: Hypoglycemia Protocol Hydrocortisone (Anusol-Hc) 1 gm [place] BID [facility] Last Admin: 03/17/18 17:49 Dose: 1 applic Metronidazole (Flagyl) 500 mg in 100 mls @ 100 mls/hr IVPB Q8H [facility]; Protocol Last Admin: 03/17/18 17:50 Dose: 100 mls/hr Insulin Glargine (Lantus) 7 unit SC HS [facility] Last Admin: 03/17/18 21:29 Dose: 7 units Insulin Human Regular (Novolin R) 0 unit SC [facility]; Protocol Last Admin: 03/17/18 21:28 Dose: Not Given Insulin Human Regular (Novolin R) 4 unit SC TIDPC [facility] Methylprednisolone (Solu-Medrol) 30 mg IVP Q12 [facility] Stop: 03/19/18 22:01 Last Admin: 03/17/18 21:28 Dose: 30 mg Metoclopramide HCl (Reglan) 5 mg IVP Q6H [facility] Last Admin: 03/17/18 18:02 Dose: 5 mg Morphine Sulfate (Morphine) 1 mg IVP Q4 PRN PRN Reason: Pain, severe (8-10) Last Admin: 03/17/18 18:15 Dose: 1 mg Pantoprazole Sodium (Protonix Ec Tab) 20 mg PO DAILY [facility] Last Admin: 03/17/18 09:47 Dose: 20 mg Potassium Chloride (K-Dur 20 Meq Er Tab) 20 meq PO DAILY [facility] Stop: 03/18/18 10:01 Last Admin: 03/17/18 09:47 Dose: 20 meq Rosuvastatin Calcium (Crestor) 5 mg PO HS [facility] Last Admin: 03/17/18 21:31 Dose: 5 mg Sulfasalazine (Azulfidine) 500 mg PO DAILY [facility]; Protocol Last Admin: 03/17/18 09:47 Dose: 500 mg - Labs Labs: 03/17/18 06:31 03/17/18 06:31 PT 19.1 SECONDS (9.7-12.2) H 03/16/18 17:44 INR 1.7 03/16/18 17:44 APTT 25 SECONDS (21-34) 03/16/18 17:44 Assessment and Plan (1) Hypoglycemia associated with diabetes Assessment & Plan: Endocrine consult f/u reason for consult: uncontrolled diabetes Source: patient and chart review & son Parag by bed side Cristel Cox is 72 y/o admitted for abdomina pain forund with colitis on antibiotics & rectal steroids as per pt. has DM 2005 (-) neuropathy , (-) retinopathy , (-) nephropathy (- ) CAD (-) PVD outpatient diabetes management regimen : glipizide 10 mg po bid inpatient diabetes management regimen: glipizide xl 10 mg po qd & novolog medium dose coverage blood glucose log :80-100 , last 3 glucose 200-300 started of Solumedrol 30 mg q12 today for 6 doses besides ate more than 70% of the meal as per nurse in charge NO hypoglycemia Allergy NKDA Past medical history:HTN , hyperlipidemia , asthma Past surgical history: cholecystectomy, colon surgery x 2 ,bilateral knee replacement Psychiatry history: denies Social history: denies smoking , ETOH use , illicit drug use Family history: son with diabetes ROS: Constitutional: denies fever, tiredness/weakness. HEENT: denies earache, change in voice .Respiratory: denies cough, sob . CVS :no chest pain, no palpitations . Abdomen: (-) abdominal pain, no nausea /vomiting, no change bowel movement. [employer]AD : denies light-headedness, dizziness. Extremities: no edema, no tremors. Skin: no itching, no rash Physical exam Well-developed AAO x3 , ,NAD VSS HEENT: norm cephalic, atraumatic, no lid lag , no exophthalmos NECK: supple, no palpable lymphadenopathy THYROID: no palpable thyromegaly, not tender CHEST: fair air entry, bilateral, CVS: S1,S2 ABDOMEN: bowel sound present, (+) tendereness , obese, no wide purple striae , no bruises EXTREMITIES: no edema, clubbing or cyanosis, no palpable hand tremors Skin: acanthosis nigricans -lab: a1c 11.3 , TSH 2.02 Assessment: hypoglycemia , resolved uncontrolled DM steroids induced hyperglycemia colitits plan : continue Novoloin R low dose coverage tid & hs start Novolin R 4 units tid with meals if eat more than 60% of the meal continue lantus 7 units sq @ 9pm daily we will follow with you. Ronit Tanner # [phone] office Fridays & Saturdays address: [address] [place] [address] ,phone # [phone] ,FAX [phone] Status: Acute Status: Acute (2) Uncontrolled diabetes mellitus Status: Acute (3) Colitis Status: Acute
[2018-03-18] MEDS: metroNIDAZOLE IV 500 mg/100 ml 500 MG/100 ML BAG IVPB SCH ×3 (00:55→17:41)
--- NOTE | 2018-03-18 02:40 | PN ---
DATE: 03/17/2018 SUBJECTIVE: This is a 72-year-old female seen and examined in rounds without significant clinical changes, but crampy abdominal pain with intermittent periods of mild diarrhea. The entire chart is reviewed, including but not limited to the most recent lab and radiology study results, current and the previous medication list, current and the previous medical events. Case discussed with the staff at length. Today's lab showed low hemoglobin of 10.7, hematocrit 34.7 with low indices as well as increased PT with low potassium and low calcium. CEA is 10.1, but increased CA19-9 for which MRCP to be considered. PHYSICAL EXAMINATION: GENERAL: A 72-year-old female, awake, alert. VITAL SIGNS: Temperature of 99, blood pressure 120/58, pulse 82. HEENT: Showed pale, dry oral mucous membranes with nonicteric sclerae. LUNGS: Few scattered crepitations. Breathing sounds are present bilaterally. HEART: Positive S1 and S2. ABDOMEN: Soft, with mild generalized tenderness. No mass or organomegaly. No rebound tenderness or guarding. EXTREMITIES: Without significant clubbing, cyanosis, or edema. NEUROLOGIC: No reported new neurological deficits, sensory or motor. IMPRESSION: 1. Acute colitis. 2. Re-exacerbation of peptic ulcer disease. 3. Known history of poorly controlled diabetes mellitus, osteoarthritis, bronchial asthma. SUGGESTIONS: 1. Continue current management. 2. MRCP. 3. Further recommendations to follow. Ilan Lepe MD
[2018-03-18] MEDS: (Novolin R) Insulin Human Regular 100 units/ml vial SC SCH ×5 (08:39→17:44)
[2018-03-18 08:48] VITALS: O2SAT 97
[2018-03-18] MEDS: Potassium Chloride 20 mEq ER Tab PO SCH (10:18)
[2018-03-18] MEDS: Pantoprazole 20 mg EC Tab PO SCH (10:18)
[2018-03-18] MEDS: MethylPREDNISolone 40 mg Vial IVP SCH (10:18)
[2018-03-18] MEDS: Hydrocortisone 2.5% Rectal Cream(30 gm) PR SCH (10:19)
--- NOTE | 2018-03-18 10:19 | PN ---
DATE: 03/18/2018 SUBJECTIVE: The patient, Cristel Edward, continues to have right hip and right lower back pain. She has been requiring medicines. The patient is also having diarrhea and she has abdominal pain and bloating. She denies any blood in the stools. Her diarrhea has been persisting. She is afebrile. No nausea or vomiting. She is tolerating diet. She has been seen by GI. PHYSICAL EXAMINATION: VITAL SIGNS: Blood pressure is 111/55, pulse 79, respiratory rate 20, temperature 99.2. LUNGS: Clear. CARDIOVASCULAR SYSTEM: S1 and S2 regular. ABDOMEN: Soft. There is left lower quadrant tenderness. ASSESSMENT: 1. Hip pain in a patient with history of rheumatoid arthritis. 2. Ulcerative colitis, rule out underlying Clostridium difficile colitis. 3. Dehydration, hypokalemia. 4. Type 2 diabetes. PLAN: Continue current medication. Start steroids and Flagyl, and follow up closely. Figueroa Richardson MD
[2018-03-18 14:16] LABS: BLOOD UREA NITROGEN 3 mg/dL (7-17); GFR NON-AFRICAN AMERICAN > 60
--- NOTE | 2018-03-18 15:12 | PN ---
DATE: 03/18/2018 LOCATION: 358, bed B. SUBJECTIVE: This is a 72-year-old female seen and examined in rounds with less abdominal pain as well as less bowel movement frequency. No nausea or vomiting. No chest pain or palpitation, chills or fever. The patient tolerated oral intake well. The entire chart is reviewed including but not limited to the most recent lab and radiology study results, current and the previous medication list, current and the previous medical events and today's lab results showed blood glucose level of 259. Rest of the lab results still pending. PHYSICAL EXAMINATION: GENERAL: A 72-year-old female, awake, alert, oriented. VITAL SIGNS: Afebrile with pulse of 80, respiratory rate 20 to 22, blood pressure of 120/68. HEENT: Showed mildly pale, dry oral mucous membrane. Nonicteric sclerae. LUNGS: Few scattered crepitation. Decreased air entry at bases. HEART: Positive S1 and S2. ABDOMEN: Soft with mild generalized tenderness. No mass or organomegaly. No rebound tenderness or guarding. EXTREMITIES: Without significant edema, clubbing or cyanosis. NEUROLOGICAL: No reported new neurological deficits, sensory or motor. It has to be mentioned that official pathology report of colonoscopy results still pending and the possibility of ulcerative colitis was strongly raised. The patient had been on steroids post colonoscopy. IMPRESSION: 1. Inflammatory bowel disease, most likely. 2. Anemia secondary to above. 3. Poorly-controlled diabetes mellitus. 4 Peptic ulcer disease. 5. Known history of bronchial asthma, osteoarthritis. SUGGESTIONS: 1. Agree with your plan. 2. The patient needs followup colonoscopy after one year. 3. Follow up on pathology report. Ilan Lepe MD
--- NOTE | 2018-03-18 16:31 | CP.PCM.PN ---
Subjective - Date & Time of Evaluation Date of Evaluation: 03/18/18 Time of Evaluation: 16:31 Objective - Vital Signs/Intake and Output Vital Signs (last 24 hours): Temp Pulse Resp BP Pulse Ox 98.5 F 81 20 114/65 97 03/18/18 08:47 03/18/18 08:47 03/18/18 08:47 03/18/18 08:47 03/18/18 08:47 Intake and Output: 03/18/18 03/18/18 06:59 18:59 Intake Total 300 800 Balance 300 800 - Medications Medications: Current Medications Dextrose (Dextrose 50% Inj) 0 ml IV STAT PRN; Protocol PRN Reason: Hypoglycemia Protocol Dextrose (Glutose 15) 0 gm PO ONCE PRN; Protocol PRN Reason: Hypoglycemia Protocol Folic Acid (Folic Acid) 1 mg PO DAILY [facility] Last Admin: 03/18/18 10:18 Dose: 1 mg Glucagon (Glucagen Diagnostic Kit) 0 mg IM STAT PRN; Protocol PRN Reason: Hypoglycemia Protocol Hydrocortisone (Anusol-Hc) 1 gm [place] BID [facility] Last Admin: 03/18/18 10:19 Dose: 1 applic Metronidazole (Flagyl) 500 mg in 100 mls @ 100 mls/hr IVPB Q8H [facility]; Protocol Last Admin: 03/18/18 10:18 Dose: 100 mls/hr Insulin Glargine (Lantus) 7 unit SC HS [facility] Last Admin: 03/17/18 21:29 Dose: 7 units Insulin Human Regular (Novolin R) 0 unit SC ACHS [facility]; Protocol Last Admin: 03/18/18 12:00 Dose: 4 units Insulin Human Regular (Novolin R) 4 unit SC TIDPC [facility] Last Admin: 03/18/18 13:04 Dose: Not Given Methylprednisolone (Solu-Medrol) 30 mg IVP Q12 [facility] Stop: 03/19/18 22:01 Last Admin: 03/18/18 10:18 Dose: 30 mg Metoclopramide HCl (Reglan) 5 mg IVP Q6H [facility] Last Admin: 03/18/18 12:00 Dose: 5 mg Morphine Sulfate (Morphine) 1 mg IVP Q4 PRN PRN Reason: Pain, severe (8-10) Last Admin: 03/18/18 13:13 Dose: 1 mg Pantoprazole Sodium (Protonix Ec Tab) 20 mg PO DAILY [facility] Last Admin: 03/18/18 10:18 Dose: 20 mg Rosuvastatin Calcium (Crestor) 5 mg PO HS [facility] Last Admin: 03/17/18 21:31 Dose: 5 mg Sulfasalazine (Azulfidine) 500 mg PO DAILY [facility]; Protocol Last Admin: 03/18/18 10:18 Dose: 500 mg - Labs Labs: 03/17/18 06:31 03/18/18 13:49 PT 19.1 SECONDS (9.7-12.2) H 03/16/18 17:44 INR 1.7 03/16/18 17:44 APTT 25 SECONDS (21-34) 03/16/18 17:44 Assessment and Plan - Assessment and Plan (Free Text) Assessment: 72 year old female admitted with ulcerative colitis exacerbation, s/p colonoscopy, seen and examined. Alert, awake, denies sob or chest pains, tolerating diet, no acute distress. Discussed with DR Richardson, plan to discharge to [facility] for rehab today. Will continue with oral steroids.
[2018-03-18 17:15] VITALS: BP 124/68; PULSE 77; TEMP 98.4
--- NOTE | 2018-03-18 22:28 | CP.PCM.DIS ---
Provider - Provider Date of Admission: 03/12/18 16:32 Attending physician: Figueroa Richardson MD Hospital Course - Lab Results Lab Results: Micro Results 03/16/18 Unknown Stool Stool Culture - Final NO SALMONELLA, SHIGELLA OR CAMPYLOBACTER ISOLATED. 03/12/18 14:20 Blood Blood Culture - Final NO GROWTH AFTER 5 DAYS 03/12/18 14:20 Blood Gram Stain - Final TEST NOT PERFORMED 03/12/18 12:50 Blood Blood Culture - Final NO GROWTH AFTER 5 DAYS 03/12/18 12:50 Blood Gram Stain - Final TEST NOT PERFORMED Most Recent Lab Values WBC 4.8 K/uL (4.8-10.8) 03/17/18 06:31 RBC 3.57 Mil/uL (3.80-5.20) L 03/17/18 06:31 Hgb 10.7 g/dL (11.0-16.0) L 03/17/18 06:31 Hct 32.5 % (34.0-47.0) L 03/17/18 06:31 MCV 90.9 fL (81.0-99.0) 03/17/18 06:31 MCH 29.9 pg (27.0-31.0) 03/17/18 06:31 MCHC 32.9 g/dL (33.0-37.0) L 03/17/18 06:31 RDW 13.8 % (11.5-14.5) 03/17/18 06:31 Plt Count 281 K/uL (130-400) D 03/17/18 06:31 MPV 7.1 fL (7.2-11.7) L 03/17/18 06:31 Neut % (Auto) 57.0 % (50.0-75.0) 03/17/18 06:31 Lymph % (Auto) 28.5 % (20.0-40.0) 03/17/18 06:31 [place]bot % (Auto) 13.7 % (0.0-10.0) H 03/17/18 06:31 Eos % (Auto) 0.3 % (0.0-4.0) 03/17/18 06:31 Baso % (Auto) 0.5 % (0.0-2.0) 03/17/18 06:31 Neut # (Auto) 2.7 K/uL (1.8-7.0) 03/17/18 06:31 Lymph # (Auto) 1.4 K/uL (1.0-4.3) 03/17/18 06:31 Talbot # (Auto) 0.7 K/uL (0.0-0.8) 03/17/18 06:31 Eos # (Auto) 0.0 K/uL (0.0-0.7) 03/17/18 06:31 Baso # (Auto) 0.0 K/uL (0.0-0.2) 03/17/18 06:31 ESR 50 mm/hr (0-20) H 03/16/18 17:44 PT 19.1 SECONDS (9.7-12.2) H 03/16/18 17:44 INR 1.7 03/16/18 17:44 APTT 25 SECONDS (21-34) 03/16/18 17:44 Sodium 134 mmol/L (132-148) 03/18/18 13:49 Potassium 4.4 mmol/L (3.6-5.2) 03/18/18 13:49 Chloride 99 mmol/L (98-107) 03/18/18 13:49 Carbon Dioxide 27 mmol/L (22-30) 03/18/18 13:49 Anion Gap 13 (10-20) 03/18/18 13:49 BUN 3 mg/dL (7-17) L 03/18/18 13:49 Creatinine 0.5 mg/dL (0.7-1.2) L 03/18/18 13:49 Est GFR ( Amer) > 60 03/18/18 13:49 Est GFR (Non-Af Amer) > 60 03/18/18 13:49 POC Glucose (mg/dL) 267 mg/dL (65-110) H 03/18/18 16:50 Random Glucose 357 mg/dL (65-105) H 03/18/18 13:49 Hemoglobin A1c 11.3 % (4.2-6.5) H 03/15/18 07:25 Calcium 8.0 mg/dl (8.6-10.4) L 03/18/18 13:49 Magnesium 1.3 mg/dL (1.6-2.3) L 03/15/18 07:25 Total Bilirubin 0.5 mg/dL (0.2-1.3) 03/14/18 07:29 AST 17 U/L (14-36) 03/14/18 07:29 ALT 28 U/L (9-52) 03/14/18 07:29 Alkaline Phosphatase 90 U/L (38-126) 03/14/18 07:29 Total Protein 5.6 g/dL (6.3-8.3) L 03/14/18 07:29 Albumin 2.3 g/dL (3.5-5.0) L 03/14/18 07:29 Globulin 3.3 gm/dL (2.2-3.9) 03/14/18 07:29 Albumin/Globulin Ratio 0.7 (1.0-2.1) L 03/14/18 07: Lipase 26 U/L (23-300) 03/12/18 14:02 Carcinoembryonic Ag 10.1 ng/mL (0-3.0) H 03/16/18 14:06 CA 19-9 Antigen 140 U/mL (0-37) H 03/16/18 14:06 CA 125 Antigen 20.6 U/mL (0-35) 03/16/18 14:06 TSH 3rd Generation 2.02 mIU/L (0.46-4.68) 03/15/18 07:25 Urine Color Yellow (YELLOW) 03/12/18 22:21 Urine Clarity Hazy (Clear) 03/12/18 22:21 Urine pH 6.0 (5.0-8.0) 03/12/18 22:21 Ur Specific [place] 1.019 (1.003-1.030) 03/12/18 22:21 Urine Protein 1+ mg/dL (NEGATIVE) H 03/12/18 22:21 Urine Glucose (UA) Normal mg/dL (Normal) 03/12/18 22: Urine Ketones Trace mg/dL (NEGATIVE) 03/12/18 22: Urine Blood 1+ (NEGATIVE) H 03/12/18 22:21 Urine Nitrate Negative (NEGATIVE) 03/12/18 22: Urine Bilirubin Negative (NEGATIVE) 03/12/18 22: Urine Urobilinogen 2.0 mg/dL (0.2-1.0) H 03/12/18 22:21 Ur Leukocyte Esterase 2+ [place]/uL (Negative) H 03/12/18 22:21 Urine WBC (Auto) 11 /hpf (0-5) H 03/12/18 22:21 Urine RBC (Auto) 7 /hpf (0-3) H 03/12/18 22:21 Ur Squamous Epith Cells 17 /hpf (0-5) H 03/12/18 22:21 Urine Bacteria Few (<OCC) H 03/12/18 22:21 Hyaline Casts 11-20 /lpf (0-2) H 03/12/18 22:21 Stool Leukocytes, Qual Negative (NEGATIVE) 03/16/18 14:50 C. difficile Ag & Toxin Negative (NEGATIVE) 03/16/18 14:50 Discharge Plan - Discharge Medications Prescriptions: Metronidazole [Flagyl] 500 mg PO Q8H 7 Days tablet predniSONE [Prednisone] 10 mg PO BID 7 Days tab - Follow Up Plan Condition: GOOD Disposition: REHAB FACILITY/REHAB UNIT Instructions: Diarrhea in Adolescents and Adults, Metronidazole (Systemic), Diabetes Diet , Diabetes Type 2 (DC), Prednisone, Diabetic Meal Planning Referrals: Ilan Land [Staff Provider] - Ronit Sharp MD [Staff Provider] - Figueroa Richardson MD [Staff Provider] -
--- NOTE | 2018-03-19 10:53 | DS ---
DISCHARGE DIAGNOSES: 1. Exacerbation of ulcerative colitis. 2. Type 2 diabetes. 3. Hypertension. 4. Rheumatoid arthritis. HISTORY OF PRESENT ILLNESS: This is a 72-year-old female, well known to me with history of ulcerative colitis, and recently she was discharged from [facility]. There she was treated for ulcerative colitis. She is compliant with her diet, medication, and followup. The patient went home and she was taking her medication and she developed another episode of ulcerative colitis with nausea, diarrhea, loose bloody stool, generalized weakness. The patient was admitted to [facility]; started on Flagyl, Solu-Medrol. GI evaluation was done, and the patient was treated medically. The patient's condition started improving. Her blood sugar was brought under control. She felt better and she is for discharge. The patient has right hip pain. No evidence of fracture. PHYSICAL EXAMINATION: VITAL SIGNS: Blood pressure 124/68, pulse 77, respiratory rate 20, temperature 98.4. LUNGS: Clear. No rales. No rhonchi. CARDIOVASCULAR SYSTEM: S1 and S2 regular. ABDOMEN: Soft. ASSESSMENT: 1. Rheumatoid arthritis. 2. Exacerbation of ulcerative colitis. 3. Diabetes. 4. Hypertension. PLAN: Discharge the patient. Monitor the patient. The patient is going to subacute rehab. Figueroa Richardson MD
== END 2018-03-18 20:53 | DRG 387 ==
LOC: C.ER 12:28 → C.9E 16:32 → C.3T 17:16
PROVIDERS: ADMIT Internal Medicine; ATTEND Internal Medicine
PROC: 0DBE8ZX Excision of Large Intestine, Via Natural or Artificial Opening Endoscopic, Diagnostic (ICD-10-PCS; 2018-03-16)
PROC: 0DBL8ZX Excision of Transverse Colon, Via Natural or Artificial Opening Endoscopic, Diagnostic (ICD-10-PCS; 2018-03-16)
PROC: 0DBN8ZX Excision of Sigmoid Colon, Via Natural or Artificial Opening Endoscopic, Diagnostic (ICD-10-PCS; 2018-03-16)
PROC: 0DBK8ZX Excision of Ascending Colon, Via Natural or Artificial Opening Endoscopic, Diagnostic (ICD-10-PCS; principal; 2018-03-16 11:58)
DX: K51.90 Ulcerative colitis, unspecified, without complications (principal); K51.20 Ulcerative (chronic) proctitis without complications; K62.89 Other specified diseases of anus and rectum; E11.65 Type 2 diabetes mellitus with hyperglycemia; E86.0 Dehydration; E87.6 Hypokalemia; D64.9 Anemia, unspecified; E11.649 Type 2 diabetes mellitus with hypoglycemia without coma; E78.5 Hyperlipidemia, unspecified; F60.0 Paranoid personality disorder; I10 Essential (primary) hypertension; J45.909 Unspecified asthma, uncomplicated; K27.9 Peptic ulcer, site unspecified, unspecified as acute or chronic, without hemorrhage or perforation; M06.9 Rheumatoid arthritis, unspecified; Z96.653 Presence of artificial knee joint, bilateral; Z90.710 Acquired absence of both cervix and uterus